=== PATIENT | female | born 1965 | race Hispanic/Latino ===

== ENCOUNTER 2017-09-21 | Observation (INO) | payer BC ==
[~2017-09-21] VITALS: Ht 157.5 cm; Wt 82.1 kg
[~2017-09-21] MED LIST: BYETTA PO; ISOSORBIDE; METFORMIN HCL500 M3; NITROLINGUAL TL; SERTRALINE; Z.0.ALPRAZOLAM0.5 MG PO; Z.0.BENAZEPRIL HCL20 PO; Z.0.BYSTOLIC5 MG PO; Z.0.LYRICA50 MG PO; Z.0.PRAVASTATIN SOD2 PO
[2017-09-21 00:29] LABS: BASOPHILS # (AUTO) 0.1 (0.0-0.1); BASOPHILS % 0.5 % (0.0-1.0); EOSINOPHILS # (AUTO) 0.1 (0.0-0.4); EOSINOPHILS % 0.9 % (0.0-6.0); HEMATOCRIT 40.2 % (34.2-44.1); HEMOGLOBIN 13.8 g/dL (12.0-16.0); LYMPHOCYTES # (AUTO) 3.8 (1.0-3.2); LYMPHOCYTES % 33.1 % (18.0-39.1); MEAN CORPUSCULAR HEMOGLOBIN 29.8 pg (28-32); MEAN CORPUSCULAR HGB CONC 34.3 g/dL (31-35); MEAN CORPUSCULAR VOLUME 86.8 fL (81-99); MONOCYTES # (AUTO) 1.1 (0.2-0.8); MONOCYTES % 9.7 % (4.4-11.3); NEUTROPHILS # (AUTO) 6.4 (2.1-6.9); NEUTROPHILS % 55.4 % (38.7-80.0); PLATELET COUNT 292 x10e3/uL (140-360); RED BLOOD COUNT 4.63 x10e6/uL (3.6-5.1); RED CELL DISTRIBUTION WIDTH 13.3 % (11.7-14.4)
[2017-09-21] MEDS ORDERED: ASPIRIN 81 MG CHEW TAB PO ONE (00:30)
[2017-09-21] MEDS ORDERED: LORAZEPAM INJ 2 MG/ML VIAL IV ONE (00:30)
[2017-09-21 00:38] LABS: INR 1.13; PARTIAL THROMBOPLASTIN TIME 33.5 seconds (23.8-35.5); PROTHROMBIN TIME 13.6 seconds (11.9-14.5)
[2017-09-21 00:46] LABS: ALANINE AMINOTRANSFERASE 32 IU/L (0-55); ALBUMIN 4.5 g/dL (3.5-5.0); ALBUMIN/GLOBULIN RATIO 1.5 (0.8-2.0); ALKALINE PHOSPHATASE 63 IU/L (40-150); BLOOD UREA NITROGEN 16 mg/dL (7-26); BUN/CREATININE RATIO 19 (6-25); CALCIUM 10.5 mg/dL (8.4-10.2); CARBON DIOXIDE 21 mmol/L (22-29); CHLORIDE 107 mmol/L (98-107); CREATINE KINASE 42 IU/L (29-168); CREATININE, SERUM 0.83 mg/dL (0.57-1.11); EST GLOMERULAR FILTRATION RATE > 60 ML/MIN (60-); GLUCOSE 132 mg/dL (74-118); MAGNESIUM 1.7 MG/DL (1.3-2.1); SODIUM 141 mmol/L (136-145)
--- NOTE | 2017-09-21 01:11 | Diagnostic Imaging Report ---
EXAMINATION: CHEST 2 VIEWS INDICATION: Chest pain, shortness of breath COMPARISON: None FINDINGS: TUBES and LINES: None. LUNGS: Lungs are well inflated. Lungs are clear. There is no evidence of pneumonia or pulmonary edema. PLEURA: No pleural effusion or pneumothorax. HEART AND MEDIASTINUM: The cardiomediastinal silhouette is unremarkable. BONES AND SOFT TISSUES: No acute osseous lesion. Soft tissues are unremarkable. UPPER ABDOMEN: No free air under the diaphragm. There are cholecystectomy clips. IMPRESSION: No acute thoracic abnormality. Signed by: Dr. Marino Saeed M.D. on 09/21/2017 1:07 AM
[2017-09-21 01:12] LABS: THYROID STIMULATING HORMONE 5.292 uIU/mL (0.350-4.940)
[2017-09-21] MEDS ORDERED: ONDANSETRON HCL INJ 2 MG/ML VIAL IV PRN (01:45)
[2017-09-21] MEDS ORDERED: DEXTROSE 50% SYRINGE 50 ML IV PRN (01:45)
[2017-09-21] MEDS ORDERED: MORPHINE SULFATE 2 MG/ML SYR IV PRN (01:45)
--- OUTSIDE RECORDS SUMMARY | 2017-09-21 01:46 | XMS REPORT ---
Author Author [facility] Address Unknown Phone Unavailable Care Team Providers Care Drapery Inspector Name Role Phone JENNI YAO Unavailable Unavailable Problems This patient has no known problems. Allergies, Adverse Reactions, Alerts This patient has no known allergies or adverse reactions. Medications This patient has no known medications. Results Test Description Test Time Test Comments Text Results Atomic Results Result Comments CHEST 2 VIEWS 2017-09-21 01:07:00 [place] [address] Patient Name: SHASHI DAVISON MR #: [id number] : 1965 Age/Sex: 51/F Req #: [id number] Adm Physician: Ordered by: JENNI YAO MD Report #: [id number] Location: ER Room/Bed: Procedure: [id number] DX/CHEST 2 VIEWS Exam Date: 09/21/17 Exam Time: 37 REPORT STATUS: Signed EXAMINATION: CHEST 2 VIEWS INDICATION: Chest pain, shortness of breath COMPARISON: None FINDINGS: TUBES and LINES: None. LUNGS: Lungs are well inflated. Lungs are clear. There is no evidence of pneumonia or pulmonary edema. PLEURA: No pleural effusion or pneumothorax. HEART AND MEDIASTINUM: The cardiomediastinal silhouette is unremarkable. BONES AND SOFT TISSUES: No acute osseous lesion. Soft tissues are unremarkable. UPPER ABDOMEN: No free air under the diaphragm. There are cholecystectomy clips. IMPRESSION: No acute thoracic abnormality. Signed by: Dr. Marino Saeed M.D. on 09/21/2017 1: 07 AM Dictated By: MARINO MARLOW MD 6 Transcribed By: DINORA on 09/21/17106 COPY TO: JENNI YAO MD
[2017-09-21] MEDS ORDERED: JANUMET 50-1,01 EACH PO (02:00)
[2017-09-21] MEDS ORDERED: FENOFIBRATE160 MG PO (02:00)
[2017-09-21] MEDS ORDERED: METOPROLOL SUCC25 MG PO (02:00)
[2017-09-21] MEDS ORDERED: MYRBETRIQ50 MG PO (02:00)
[2017-09-21] MEDS ORDERED: PRAVASTATIN SOD40 MG (02:00)
[2017-09-21] MEDS ORDERED: ISOSORBIDE MONO30 MG PO (02:00)
[2017-09-21] MEDS ORDERED: GABAPENTIN100 MG PO (02:00)
[2017-09-21 02:13] VITALS: BP 113/74
[2017-09-21 04:00] VITALS: BP 125/74
[2017-09-21] MEDS ORDERED: LEVOTHYROXINE SODIUM 25 MCG TABLET PO SCH (07:00)
[2017-09-21] MEDS: INSULIN REGULAR, HUMAN 100 UNIT/1 ML 3ML VIAL SQ SCH ×2 (07:30→12:44)
[2017-09-21 08:04] LABS: ANION GAP 12.8 mmol/L (8-16); BLOOD UREA NITROGEN 17 mg/dL (7-26); BUN/CREATININE RATIO 22 (6-25); CALCIUM 9.6 mg/dL (8.4-10.2); CARBON DIOXIDE 26 mmol/L (22-29); CHLORIDE 108 mmol/L (98-107); CHOLESTEROL 159 MD/DL (0-199); CREATINE KINASE 30 IU/L (29-168); CREATININE, SERUM 0.76 mg/dL (0.57-1.11); EST GLOMERULAR FILTRATION RATE > 60 ML/MIN (60-); GLUCOSE 120 mg/dL (74-118); HDL CHOLESTEROL 40 MG/DL (40-60); LDL CHOLESTEROL 100 MG/DL (60-130); POTASSIUM 3.8 mmol/L (3.5-5.1); SODIUM 143 mmol/L (136-145); TRIGLYCERIDES 94 MG/DL (0-149)
[2017-09-21 08:07] VITALS: BP 98/74
[2017-09-21 08:59] LABS: BASOPHILS # (AUTO) 0.1 (0.0-0.1); BASOPHILS % 0.7 % (0.0-1.0); EOSINOPHILS # (AUTO) 0.1 (0.0-0.4); EOSINOPHILS % 1.4 % (0.0-6.0); HEMATOCRIT 37.8 % (34.2-44.1); HEMOGLOBIN 12.6 g/dL (12.0-16.0); LYMPHOCYTES # (AUTO) 2.4 (1.0-3.2); LYMPHOCYTES % 27.5 % (18.0-39.1); MEAN CORPUSCULAR HGB CONC 33.3 g/dL (31-35); MONOCYTES # (AUTO) 0.9 (0.2-0.8); MONOCYTES % 9.7 % (4.4-11.3); NEUTROPHILS # (AUTO) 5.3 (2.1-6.9); NEUTROPHILS % 60.1 % (38.7-80.0); PLATELET COUNT 257 x10e3/uL (140-360); RED CELL DISTRIBUTION WIDTH 13.4 % (11.7-14.4)
[2017-09-21 09:00] VITALS: BP 98/74
[2017-09-21] MEDS ORDERED: ASPIRIN 81 MG ENTERIC COATED PO SCH (09:00)
[2017-09-21] MEDS ORDERED: NICOTINE 21 MG/EA PATCH TOP SCH (09:00)
[2017-09-21] MEDS ORDERED: FAMOTIDINE 20 MG/2 ML VIAL IV SCH (09:00)
[2017-09-21 12:00] VITALS: BP 138/92
--- NOTE | 2017-09-21 12:55 | Consultation ---
DATE OF CONSULTATION: September 21, 2017 CARDIOLOGY CONSULTATION REASON FOR CONSULTATION: Chest pain. HISTORY OF PRESENT ILLNESS: This is a 51-year-old woman with a history of diabetes mellitus, hypertension, hyperlipidemia, and coronary vasospasm, who presents with complaints of panic and chest pain. The patient reports she had just gotten back from the movies yesterday when she had a panic attack. She then subsequently started developing pain between her shoulder blades that traveled to the front of her chest. She described it as a sharp pain, 7/10 in severity that occurred intermittently. She took a dose of Xanax without relief, and presented to the ER for further evaluation. The patient states that this pain is similar in nature to her prior chest pain from coronary spasm. However, because of her panic attack she did not take any of her sublingual nitroglycerin. She denied any edema, orthopnea or PND. REVIEW OF SYSTEMS: Negative except as per HPI. PAST MEDICAL HISTORY: Diabetes mellitus, hypertension, hyperlipidemia, coronary vasospasm. PAST SURGICAL HISTORY: Appendectomy, tubal ligation, hysterectomy, ankle surgery, knee surgery, shoulder surgery, cholecystectomy. ALLERGIES: NO KNOWN DRUG ALLERGIES. SOCIAL HISTORY: She smokes a pack a day. Denies any alcohol or illicit drugs. FAMILY HISTORY: Pertinent for multiple family members with myocardial infarction in her paternal relatives, including a brother who had a myocardial infarction. PHYSICAL EXAMINATION VITALS: Temperature 97.3 degrees, pulse 56, respiratory rate 17, blood pressure 98/74, oxygen saturation 98% on room air. GENERAL: A well-developed, well-nourished woman in no acute distress. Awake and alert. HEENT: Normocephalic and atraumatic. Pupils equal. No scleral icterus. NECK: Supple. No thyromegaly or cervical lymphadenopathy. No carotid bruit. LUNGS: Clear to auscultation bilaterally. No wheezes or crackles. CARDIOVASCULAR: Normal rate. Regular rhythm. No murmur. Normal S1 and S2. ABDOMEN: Soft and nontender. EXTREMITIES: No edema. Nonfocal exam. LABS: WBC 8.76, hemoglobin 12.6, hematocrit 37.8, and platelets 257,000. Sodium 143, potassium 3.8, chloride 108, CO2 26, BUN 17, creatinine 0.76. EKG is normal sinus rhythm. Normal ECG. Chest x-ray with no acute thoracic abnormality. IMPRESSION 1. Chest pain. 2. Anxiety. 3. Hyperlipidemia. 4. Diabetes mellitus. 5. Hypertension. RECOMMENDATIONS: Continue home cardiac medications. Discontinue nitroglycerin patch if blood pressure permits. Plan to start calcium channel blockers. Patient had a nuclear stress test within the last year. No further cardiac evaluation is indicated at this time. Management of anxiety per primary service. Thank you for this consult. We will continue to follow. Job#: [id number] RI
[2017-09-21 15:34] LABS: CREATINE KINASE 28 IU/L (29-168)
[2017-09-21 16:00] VITALS: BP 148/91
[2017-09-21] MEDS ORDERED: AMLODIPINE BESYLATE 5 MG TAB PO SCH (16:00)
[2017-09-21] MEDS ORDERED: AMLODIPINE BESYL5 MG PO (16:21)
--- NOTE | 2017-09-21 22:58 | History and Physical ---
A 51-year-old female comes in with chest pain. HISTORY OF PRESENT ILLNESS: This is Ms. Tere Donnelly with a history of hypertension, history of diabetes and hyperlipidemia was in her usual state of health until she started with chest pain right before she went to sleep. She had a panic attack too. The panic attack was preceded by chest pain. Chest pain was retrosternal in nature, and no radiation. The patient continued to have chest pain and a panic attack, and came to the emergency room. Was admitted for chest pain. PAST MEDICAL HISTORY: History of hypertension, history of anxiety attack, history of hyperlipidemia, history of diabetes mellitus, history of smoking, history of neuropathy, and history of depression too. MEDICATIONS: That she takes at home are: 1. Alprazolam 0.5 mg p.r.n. 2. Benazepril 20 mg daily. 3. Fenofibrate 160 mg daily. 4. Gabapentin 100 mg. 5. Isosorbide mononitrate 30 mg ER. 6. Metformin 500 mg. 7. Metoprolol 25 mg. 8. Myrbetriq for incontinence 50 mg. 9. Labetalol 5 mg tablet daily. 10. Pravastatin 40 mg. 11. Byetta 5 mcg weekly. PAST SURGICAL HISTORY: Includes history of cholecystectomy, history of hysterectomy, history of multiple orthopedic surgeries. FAMILY HISTORY: Positive for coronary artery disease in brother and father. Brother at the age of 55 from myocardial infarction. REVIEW OF SYSTEMS: Negative for shortness of breath, nausea, vomiting, diarrhea, constipation, or rectal bleeding. No hematochezia. No diplopia. No blurry vision. No headaches. SOCIAL HISTORY: History of smoking a pack a day. No ETOH. No drug abuse either. PHYSICAL EXAMINATION VITAL SIGNS: 96.6, pulse 68, respirations 17, blood pressure 113/74, pulse ox 98%. HEENT: Normocephalic and atraumatic. Anxious appearing. CV: S1 and S2 normal. Regular rate and rhythm. ABDOMEN: Nontender and nondistended. EXTREMITIES: No clubbing. No cyanosis. No edema. LABORATORY VALUES: Initial white count is 11,000 with lymphocytes high at 3.8. Sodium is 141. The patient's BUN was 16, creatinine 0.83. CO2 level was 21. Glucose 132. Calcium is 10.5. TSH was 5.292. BNP was less than 12. Troponin was less than 0.01. Coags were normal. IMAGING: Chest x-ray showed no acute abnormalities. EKG showed normal sinus rhythm with a normal EKG. ASSESSMENT 1. Chest pain, probably anxiety related. 2. Diabetes mellitus. 3. Hypertension. 4. Hyperlipidemia. 5. History of smoking. 6. History of elevated thyroid. PLAN: Continue home medications. Echocardiogram will be ordered. Also, aspirin will be given. The patient has high risk factors based on physical exam, family history, history of smoking, and diabetes. Will consult Dr. Carey. Stress test might be arranged or can be as an outpatient too. Troponins will be trended. Further recommendations per clinical course. Will continue to monitor the patient. Will check lipids today. Job#: [id number] ELOY
== END 2017-09-21 17:14 | disposition home or self-care (01) ==
LOC: ER → MED/SURG3 01:43
PROVIDERS: ADMIT Family Medicine; ATTEND Family Medicine
DX: R07.9 Chest pain, unspecified (principal); E11.9 Type 2 diabetes mellitus without complications; F41.1 Generalized anxiety disorder; I10 Essential (primary) hypertension; E78.5 Hyperlipidemia, unspecified; Z87.891 Personal history of nicotine dependence; F17.210 Nicotine dependence, cigarettes, uncomplicated
CPT/HCPCS: 36415; 71046; 80048; 80053; 80061; 82550; 82553; 82948; 83735; 83880; 84443; 84484; 85025; 85610; 85730; 93005; 93306; 99284; G0378; J2060

== ENCOUNTER → 2022-05-30 | Day surgery (SDC) | payer BC ==
[2022-05-28 15:13] LABS: CALCIUM 9.5 mg/dL (8.4-10.2); CREATININE, SERUM 0.74 mg/dL (0.57-1.11)
[~2022-05-30] MED LIST changes: +ACETAMINOPHEN 1000 MG/100 ML IV ONE; +ACETAMINOPHEN-1 EAC4 PO; +ALLOPURINOL300 MG PO; +AMLODIPINE BESYL5 MG PO; +BUPIVACAINE HCL 0.5% 10ML MPF VIAL INJ ONE; +DEXAMETHASONE SOD PHOS INJ 4 MG/ML SDV ONE; +EPHEDRINE SULFATE INJ 50 MG/ML VIAL ONE; +FENOFIBRATE160 MG PO; +GABAPENTIN100 MG PO; +ISOSORBIDE MONO30 MG PO; +JANUMET 50-1,01 EACH PO; +JARDIANCE25 MG PO; +LIDOCAINE HCL 2% LOCAL INJ 5 ML SDV VIAL INJ ONE; +LIPITOR10 MG PO; +METOPROLOL SUCC25 MG PO; +MUPIROCIN 2% OINT 22 GM TUBE ONE; +MYRBETRIQ50 MG PO; +ONDANSETRON HCL INJ 2MG/ML 2ML 2 MG/ML VIAL ONE; +OXYBUTYNIN CHLOR5 MG PO; +POVIDONE IODINE 0.05% 0.05 % ML PO ONE; +PRAVASTATIN SOD40 MG; +PROPOFOL IV EMULSION 10 MG/ML 20 ML VIAL ONE; +RAMIPRIL5 MG PO; +SEVOFLURANE INHAL SOLN 250 ML PEN BTL ONE; +SUCRALFATE1 GM PO; +TRESIBA100 UNIT/1 SC; +ZENPEP DR 40,01 EACH PO
[2022-05-30 09:21] VITALS: BP 130/76
== END | disposition home or self-care (01) ==
LOC: OR 05:55
PROVIDERS: ATTEND Plastic Surgery
DX: G56.01 Carpal tunnel syndrome, right upper limb (principal); M65.841 Other synovitis and tenosynovitis, right hand; E11.9 Type 2 diabetes mellitus without complications; I25.10 Atherosclerotic heart disease of native coronary artery without angina pectoris; I10 Essential (primary) hypertension; E78.5 Hyperlipidemia, unspecified; R00.1 Bradycardia, unspecified; Z01.810 Encounter for preprocedural cardiovascular examination; Z01.812 Encounter for preprocedural laboratory examination; Z79.4 Long term (current) use of insulin; Z79.899 Other long term (current) drug therapy; Z87.891 Personal history of nicotine dependence
CPT/HCPCS: 25115; 36415 ×2; 80048; 82948; 93005; J0690; J1100; J2001; J2405